=== PATIENT | female | born 1945 | race Caucasian/White ===

== ENCOUNTER 2021-02-09 21:51 | Inpatient (IN) | payer OTHER ==
[~2021-02-09] VITALS: Ht 165.1 cm; Wt 115.7 kg
[2021-02-09 22:28] VITALS: BP 167/70
[2021-02-09] MEDS ORDERED: ALPRAZOLAM XR3 MG PO (22:32)
[2021-02-09] MEDS ORDERED: OZEMPIC1 MG/0.71 SUBQ (22:33)
[2021-02-09] MEDS ORDERED: NORVASC10 MG PO (22:33)
[2021-02-09] MEDS ORDERED: CELEXA 10 MG TA10 M1 PO (22:33)
[2021-02-09 22:48] LABS: ABSOLUTE EOSINOPHILS 0.1 thou/uL (0.0-0.7); ABSOLUTE MONOCYTES 0.6 thou/uL (0.0-1.2); ABSOLUTE NEUTROPHILS 4.3 thou/uL (1.6-8.1); BASOPHILS 0.6 %; EOSINOPHILS 2.4 %; HEMATOCRIT 47.1 % (37.0-47.0); HEMOGLOBIN 15.5 gm/dL (12.0-15.0); LYMPHOCYTES 16.3 %; MCH 31.6 pg (26.0-34.0); MCHC 32.9 g/dL (28.0-37.0); MCV 96.1 fL (80.0-100.0); MONOCYTES 10.3 %; MPV 9.1 fl. (7.2-11.1); NUCLEATED RBCS 0 /100WBC; PLATELET COUNT* 205 thou/uL (150-400); POLYS 70.4 %; RDW-CV 13.9 % (10.5-14.5); WBC 6.1 thou/uL (4.0-11.0)
[2021-02-09 23:01] LABS: CALCIUM 9.1 mg/dL (8.5-10.1); POTASSIUM 3.6 mmol/L (3.5-5.1)
[2021-02-09 23:13] LABS: ALBUMIN 3.4 g/dL (3.4-5.0); TOTAL BILIRUBIN 0.7 mg/dL (<0.1-1.0); TOTAL PROTEIN 7.5 g/dL (6.4-8.2)
[2021-02-10 01:06] LABS: URINE BILIRUBIN NEGATIVE (Negative); URINE BLOOD NEGATIVE (Negative); URINE CLARITY CLEAR; URINE COLOR YELLOW; URINE GLUCOSE-RANDOM NEGATIVE (Negative); URINE KETONES NEGATIVE (Negative); URINE LEUKOCYTES-REFLEX NEGATIVE (Negative); URINE NITRITE-REFLEX NEGATIVE (Negative); URINE PROTEIN NEGATIVE (Negative); URINE UROBILINOGEN 0.2 E.U./dl (0.2-1.0)
[2021-02-10 04:33] VITALS: BP 145/84
[2021-02-10 08:30] VITALS: BP 135/78
[2021-02-10 09:33] VITALS: BP 135/78
[2021-02-10] MEDS ORDERED: SINGULAIR 10 MG10 MG PO (09:56)
[2021-02-10 15:58] VITALS: BP 143/81
[2021-02-10] MEDS ORDERED: PEPCID20 MG PO (20:07)
[2021-02-10] MEDS ORDERED: XANAX 0.5 MG0.5 MG PO (20:09)
[2021-02-10 20:49] VITALS: BP 153/81
[2021-02-10 23:43] VITALS: BP 135/83
[2021-02-11 03:51] LABS: HEMATOCRIT 44.3 % (37.0-47.0); HEMOGLOBIN 14.6 gm/dL (12.0-15.0); MCH 31.7 pg (26.0-34.0); MCHC 32.9 g/dL (28.0-37.0); MCV 96.4 fL (80.0-100.0); MPV 9.2 fl. (7.2-11.1); RBC 4.59 mil/uL (4.20-5.00); RDW-CV 14.2 % (10.5-14.5); WBC 5.7 thou/uL (4.0-11.0)
[2021-02-11 04:08] LABS: CALCIUM 8.7 mg/dL (8.5-10.1); CREATININE 0.7 mg/dL (0.6-1.3); POTASSIUM 3.5 mmol/L (3.5-5.1); TOTAL BILIRUBIN 0.8 mg/dL (<0.1-1.0); TOTAL PROTEIN 6.6 g/dL (6.4-8.2)
[2021-02-11 04:54] VITALS: BP 135/83
[2021-02-11 10:02] VITALS: BP 154/78
--- NOTE | 2021-02-11 14:41 | EKG ---
[place] [address] ELECTROCARDIOGRAM REPORT Name: LEWISCJKENDALL TERELL Room: [address] ADM IN M.R.#: [id number] Admission: 02/10/21 Attend Phys: Chucho Pedraza Discharge: Date of : 47 Date of Service: 02/09/21 225 Report #: [id number] THIS REPORT FOR: //name// [facility] ED Test Date: 2021-02-09 Test Time: 22:53:18 Pat Name: KENDALL العلي Department: Room: [facility] Gender: F Business Services Sales Representative: LOBO : 1945 Requested By: Chantel Frias Order Number: [id number] MD: Ramiro Bradley Measurements Intervals [place] Rate: 68 P: 15 [place]: 254 QRS: -73 QRSD: 148 T: 3 QT: 465 QTc: 495 Interpretive Statements Sinus rhythm Prolonged [place] interval RBBB and LAFB No previous ECG available for comparison Electronically Signed On 02-11-2021 14:40:57 CDT by Ramiro Bradley [email or web address] <ELECTRONICALLY SIGNED> By: Ramiro Bradley MD, FACC 02/11/21 1440 2253 2253 Ramiro Bradley MD, [facility] /EPI
[2021-02-11 17:08] VITALS: BP 144/92
[2021-02-11 19:52] VITALS: BP 120/78
[2021-02-12 00:40] VITALS: BP 130/78
[2021-02-12 08:00] VITALS: BP 135/71
[2021-02-12] MEDS ORDERED: TYLENOL325 M1 PO (09:12)
[2021-02-12 12:00] VITALS: BP 141/72
[2021-02-12 13:38] VITALS: BP 141/72
[2021-02-12 16:00] VITALS: BP 143/74
[2021-02-12 19:30] VITALS: BP 132/74
[2021-02-13 00:03] VITALS: BP 152/84
[2021-02-13 05:19] VITALS: BP 123/66
[2021-02-13 08:08] VITALS: BP 121/75
--- NOTE | 2021-02-13 10:07 | PATH ---
[address] [address] PATHOLOGY RPT PROCEDURE Name: KENDALL WATKINS Room: [address] IN .R.#: [id number] Admission: 02/10/21 Date of : 47 Discharge: Report #: [id number] Path Case #: [id number] [facility] Accession Number: [id number] . 01 Material submitted: . gallbladder - GALLBLADDER . 01 Clinical history: . CHOLELITHIASIS WITH CHOLECYSTITIS LAPAROSCOPIC CHOLECYSTECTOMY . 02 Diagnosis: Gallbladder: - Chronic cholecystitis and cholelithiasis. (MELISSA:carlos; 02/12/2021) MBR 02/12/2021 1822 Local . 02 Electronically signed: . Berry Chavis MD, Pathologist NPI- [id number] . 01 Gross description: . Received in formalin labeled "Kendall Watkins and gallbladder". Fixative: Formalin Labeled: Gallbladder Specimen received: An intact gallbladder Dimensions: 12.3 x 4.5 x 4.5 cm cm Serosa: Glistening pink-viera to light green bile stained Lymph node: Not present Mucosa: Velvety dark green bile-stained Average wall thickness: 0.1-0.2 Calculi: Multiple dark green bile-stained brown calculi ranging from 0.3-2.0 cm, largest lodged at the fundus Abnormalities: None present A1- [employer] body, fundus, and the cystic duct margin(red inked). ([facility]; 02/11/2021) . . . . [facility] 02/12/2021 1821 Local . 02 Pathologist provided ICD-10: K80.10 . 02 CPT . [id number] Specimen Comment: A courtesy copy of this report has been sent to [phone] [place] [address] PATHOLOGY RPT PROCEDURE Name: KENDALL WATKINS Room: [address]#: [id number] Admission: 02/10/21 Date of : 47 Discharge: Report #: [id number] Path Case #: [id number] Specimen Comment: Report sent to Performed at: 01 [facility] [place] [address] [place] [address] [address], [place], [place] [id number] MD Clem Hines MD Phone: [phone] Performed at: [address] [address] [address], [place], [place] [id number] MD Berry Chavis MD Phone: [phone]
[2021-02-13 12:39] VITALS: BP 137/78
[2021-02-13 13:15] VITALS: BP 141/72
[2021-02-13 13:31] VITALS: BP 141/72
== END 2021-02-13 14:05 | disposition home health service (06) | DRG 418 ==
LOC: M.ERS 21:51 → M.2W 02-10 02:21 → M.TBA-ER 02-10 02:21 → M.2W 02-10 09:55
PROVIDERS: Internal Medicine; Personal Emergency Response Attendant; ADMIT Internal Medicine; ATTEND Internal Medicine
PROC: 0FT44ZZ Resection of Gallbladder, Percutaneous Endoscopic Approach (ICD-10-PCS; principal; 2021-02-11)
DX: K80.00 Calculus of gallbladder with acute cholecystitis without obstruction (principal); Z68.41 Body mass index [BMI] 40.0-44.9, adult; E66.01 Morbid (severe) obesity due to excess calories; E11.9 Type 2 diabetes mellitus without complications; I10 Essential (primary) hypertension; E78.5 Hyperlipidemia, unspecified; J45.909 Unspecified asthma, uncomplicated; Z20.822 Contact with and (suspected) exposure to COVID-19; Z85.3 Personal history of malignant neoplasm of breast; Z79.899 Other long term (current) drug therapy; Z88.0 Allergy status to penicillin; Z88.1 Allergy status to other antibiotic agents